=== PATIENT | male | born 1965 | race Caucasian/White ===

== ENCOUNTER → 2023-05-08 08:24 | Outpatient (CLI) | payer OTHER, SELFPAY ==
--- NOTE | ~2023-05-08 | XR_ITS ---
XR knee RT 3V 05/08/2023 09:21 Indication: Right knee pain Procedure: 3 views right knee Comparison: No prior studies for comparison. Findings: No fracture, subluxation or dislocation. No significant joint effusion. There is anatomic a lignment. No foreign bodies. Impression: 1: No significant bone or joint abnormality. Reviewed, dictated and finalized at location B. Impression: 1: No significant bone or joint abnormality.
--- NOTE | ~2023-05-08 | XR_ITS ---
EXAMINATION: XR lumbar spine min 4V DATE: 05/08/2023 09:21 INDICATION: Dorsalgia, unspecified. TECHNIQUE: 5 views of lumbar spine were obtained. COMPARISON: None. FINDINGS: There is 11 degrees dextroscoliosis of thoracolumbar spine. There is 3 mm anterolisthesis o f L4 on L5. Vertebral body heights are normal. There is mildly decreased disc height at L2-L3 and L4- L5 and severely decreased disc height at L5-S1. There is multilevel facet joint osteoarthritis, sever e bilaterally at L4-L5 and L5-S1. IMPRESSION: 1. Severe lower lumbar spondylosis. 2. Thoracolumbar dextroscoliosis. Reviewed, dictated and finalized at location A.
--- NOTE | ~2023-05-08 | XR_ITS ---
XR hip RT min 2V 05/08/2023 09:21 Indication: Right hip pain Procedure: 3 views right hip Comparison: No prior studies for comparison. Findings: Mild osteoarthritis of the right hip. No fracture, subluxation or dislocation. Sacral sherman en are symmetric. No foreign bodies. Impression: 1: Mild osteoarthritis of the right hip. Reviewed, dictated and finalized at location B. Impression: 1: Mild osteoarthritis of the right hip.
== END ==
PROVIDERS: PCP Family Medicine; Visit Provider Family Medicine
DX: M25.569 Pain in unspecified knee (principal); M47.896 Other spondylosis, lumbar region; M16.11 Unilateral primary osteoarthritis, right hip
CPT/HCPCS: 72110; 73502; 73562

== ENCOUNTER 2023-10-16 18:41 | Emergency (ER) | payer OTHER, SELFPAY ==
--- NOTE | ~2023-10-16 | XR_ITS ---
EXAM: XR hip RT 2V w AP pelvis DATE: 10/16/2023 19:27 HISTORY: pain . COMPARISON: 05/08/2023. FINDINGS: Normal mineralization. No fracture or dislocation. No lytic or blastic lesion. Lumbar dege nerative disc disease. Mild right hip osteoarthritis. Scattered pelvic enthesopathy. No erosion or pe riosteal change. Soft tissues within normal limits. IMPRESSION: No acute osseous finding in the pelvis or right hip. Reviewed, dictated and finalized at location K. 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
[2023-10-16 19:06] VITALS: BP 124/53; PULSE 79; RESP 20; TEMP 36.6; O2SAT 100
--- NOTE | 2023-10-16 19:11 | ED.GENADULT ---
HPI - General Adult General Chief complaint: Extremity Problem,Nontraumatic <Mariam Abdi December,N - Last Filed: 10/16/23 19:14> Stated complaint: right leg pain <Mariam Abdi December, - Last Filed: 10/16/23 19:14> Time Seen by Provider: 10/16/23 19:11 <Mariam Abdi December, - Last Filed: 10/16/23 19:14> Focused HPI: Neil Bella is a 58 y/o male who presents today with complaints of pain to his right hip down to his knee that is burning and severe for 6 months but seems worse over the past couple days. He states it originated when he was injured at work he states he did not break anything but has had pain ever since and that injury was about 1 year ago. He states he has followed up with pain managment for it but states they are only concerned about treating his back and state that his back is causing his pain. He is upset and states his back is fine and does not hurt, he wants his leg evaluated. GENERAL: Well-appearing, well-nourished, and in no acute distress. HEAD: Normocephalic, atraumatic. CHEST: Clear to auscultation. ?No respiratory distress. HEART: Regular rate and rhythm.? NEURO: ?Alert and oriented x3. Patient screened in triage and initial orders placed.? ?Additional care and disposition to be based upon?diagnostic testing and treatment. <Mariam Abdi December, - Last Filed: 10/16/23 19:14> Related Data Allergies/adverse reactions: Allergies Allergy/AdvReac Type Severity Reaction Status Date / Time No Known Allergies Allergy Unknown Verified 10/16/23 20:00 <Mariam Abdi December,N - Last Filed: 10/16/23 19:14> Review of Systems Review of Systems: CONSTITUTIONAL: Denies fever SKIN: Denies rash MUSCULOSKELETAL: Reports back pain, joint pain, and myalgia. NEUROLOGIC: Denies numbness, or weakness. 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 - Last Filed: 10/16/23 19:14> Family History Family History: Family History Mother Diabetes mellitus Family history of lymphoma Grandparent Family history of malignant neoplasm of breast in first degree relative Other Carcinoma of colon Malignant neoplasm of prostate <Mariam Abdi December - Last Filed: 10/16/23 19:14> Social History Social History: Social History Smoking packs per day: 0.5 Smoking cigarettes per day: 10.0 Years smoked: 40 Smoking pack-years: 20.00 Smoking status: Current every day smoker Tobacco type: cigarettes Second hand tobacco smoke exposure: No Alcohol intake: never Substance use: never Substance use type: does not use <Mariam Abdi December, - Last Filed: 10/16/23 19:14> Exam Narrative: GENERAL: Well-appearing, well-nourished, and in no acute distress. HEAD: Normocephalic, atraumatic. EYES: EOMI. CHEST: Clear to auscultation. No respiratory distress. No wheezes rales or rhonchi HEART: Regular rate and rhythm. No murmur heard. Normal peripheral pulses. BACK: No midline spinal tenderness EXTREMITIES: Normal range of motion. No edema. Strength equal in bilateral lower extremities (5/5). Normal DP pulse SKIN: Warm, dry, no rash. NEURO: No focal deficits. Alert and oriented x3. PSYCH: Normal mood and affect <Dede Beth PA-C - Last Filed: 10/16/23 20:39> Course Course Emergency Course: Patient updated on his workup an
[2023-10-16] MEDS: CYCLOBENZAPRINE HCL 10 MG TABLET PO (20:04)
[2023-10-16] MEDS: HYDROcodone/acetaminophen (*CRX) 5-325 MG TABLET 1 TAB PO (20:04)
[2023-10-16] MEDS: KETOROLAC 30 MG/ML VIAL (*BKC) IM (20:05)
[2023-10-16] MEDS: predniSONE 20 MG TABLET 60 MG PO (20:57)
== END 2023-10-16 21:00 | disposition home or self-care (01) ==
PROVIDERS: Emergency Provider Physician Assistant; PCP Family Medicine
DX: M25.551 Pain in right hip (principal); G89.29 Other chronic pain; M54.41 Lumbago with sciatica, right side; I10 Essential (primary) hypertension; M10.9 Gout, unspecified; F17.210 Nicotine dependence, cigarettes, uncomplicated
CPT/HCPCS: 73502; 96372; 99283; A9270; J1885; J7512